=== PATIENT | female | born 1930 | race Caucasian/White ===

== ENCOUNTER 2017-02-27 11:35 | Inpatient (IN) | payer OTHER, MEDICARE ==
[~2017-02-27] VITALS: Ht 160 cm; Wt 86.2 kg
[~2017-02-27 11:35] MED LIST: COZAAR50 M1 PO; FERROUS SULFAT325 M1 PO; HYDRODIURIL 2525 MG PO; LEVOTHYROXIN0.025 MG PO; LIPITOR40 M1 PO; LOPRESSOR50 M1 PO; OMEPRAZOLE40 M1 PO; RIVA15T PO; SYNTHROID150 MCG PO
--- NOTE | 2017-02-27 11:44 | ED GENERAL ADULT ---
History of Present Illness General Chief Complaint: Upper Respiratory Sx/Fever Stated Complaint: FEVER,COUGH,CONGESTION Source: patient, family, old records Exam Limitations: no limitations Vital Signs & Intake/Output Vital Signs & Intake/Output Vital Signs Date Time Temp Pulse Resp B/P B/P Pulse O2 O2 Flow FiO2 Mean Ox Delivery Rate 02/27 1225 95 02/27 1214 Room Air Room Air 02/27 1200 97 Room Air Room Air 02/27 1139 97.0 78 20 120/81 Room Air Allergies Coded Allergies: NO KNOWN ALLERGIES (04/07/15) Reconcile Medications Atorvastatin Calcium (Lipitor) 40 MG TABLET 1 TAB PO DAILY CHOLESTEROL ( Reported) Ferrous Sulfate 325 MG TAB 1 TAB PO DAILY supplememt Levothyroxine Sodium 200 MCG TABLET 1 TAB PO DAILY hypothyroidism (Reported) Levothyroxine Sodium 25 MCG TABLET 1 TAB PO DAILY hypothyroidism (Reported) Losartan (Cozaar) 100 MG TABLET 1 TAB PO DAILY BP (Reported) Metoprolol Tartrate (Lopressor) 25 MG TABLET 1 TAB PO BID BP/A Fib (Reported) Omeprazole 40 MG CAPSULE.DR 1 CAP PO DAILY gerd (Reported) Triage Note: C/O WEAKNESS, DIZZINESS, COUGH R BACK PAIN X 4 DAYS. Triage Nurses Notes Reviewed? yes Onset: Gradual Duration: day(s): (5) Timing: remote history Injury Environment: home Severity: moderate Severity Numbers: 8 No Modifying Factors: none Associated Symptoms: cough HPI: Patient is an 86-year-old female with history of atrial fibrillation, hypothyroidism presenting to the emergency department with chief complaint of generalized malaise, weakness, tactile fevers and chills and intermittently productive cough with green sputum nothing going on for the past 5 days. According to family members there are multiple sick contacts in the home including several diagnosed with influenza currently on treatment. Patient reports that she did receive her influenza vaccine. Has been taking Tylenol for her aches and pains with little to no relief. Denies any nausea. No abdominal pain. Denies any chest pain or shortness of breath. Denies any lower extremity swelling. No recent travel. Denies history of blood clots. She is currently on Xarelto for atrial fibrillation. Her last bowel movement was this morning and normal. Denies any urinary frequency urgency or burning with urination. No hematuria. She does have history of anemia for which she takes iron supplementations. Denies any palpitations. No heat or cold intolerance. She is reporting some right upper back pain that think I have the past several days, pain is worse with movement, achy. Denies any rashes. (ORTIZ WISDOM) Past History Travel History Traveled to [place] past 21 day No Medical History Any Pertinent Medical History? 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 No (ORTIZ WISDOM) Review of Systems Review of Systems Constitutional: Reports: see HPI, chills, fever, malaise, weakness. Comments Review of systems: See HPI, All other systems negative. Constitutional, no weight loss HEENT: No visual changes no sore throat Cardiovascular: No chest pain ,palpitation , orthopnea or ankle swelling Skin, no jaundice no rashes Respiratory: No dyspnea or hemoptysis GI: No nausea no vomiting : No dysuria No hematuria Muscle skeletal: no neck pain, Neurologic: No numbness no confusion, no headaches Psych: No stress anxiety or depression,. Heme/endocrine: No bruising no bleeding no polyuria or polydipsia Immunology: No splenectomy or history of AIDS (ORTIZ WISDOM) Physical Exam Physical Exam General Appearance: well developed/nourished, no apparent distress, alert, awake , comfortable Comments: Well-developed well-nourished person in no acute distress HEENT:extraocular motion intact, no nystagmus. Pupils equally round and reactive to light and accommodation. Slight pallor noted to palpable conjunctiva bilaterally. Nose is atraumatic. External auditory canal and Tympanic membranes clear. Pharynx normal. No swelling or edema. Clearing secretions without difficulty. No pharyngeal erythema or exudates noted. Dry oral mucosa, dry lips. Neck: Supple, no lymphadenopathy, normal range of motion without pain or tenderness Back: Nontender, no CVA tenderness. Cardiovascular: Regular rate and rhythms no murmurs rubs or gallops, normal JVP Respiratory: Chest nontender. No respiratory distress.diffuse wheezing both inspiratory and expiratory to auscultation bilaterally in all lung cavazos. Abdomen: Soft, obese, nontender nondistended, no appreciable organomegaly. Normal bowel sounds. No ascites. No rebound or guarding. Extremity: No edema, no calf tenderness to palpation, normal and equal pulses. Muscular strength in the upper and lower extremities is 5 out of 5 in all extremities while laying on the stretcher. Telesales Team Leader strength is equal and symmetric bilaterally. Capillary refill is intact in upper and lower extremities. Neuro: Alert oriented x3, motor sensory normal, cranial nerves II through XII grossly intact. Skin: No appreciable rash on exposed skin, skin is warm and dry. Mild tenting noted on the upper extremities. Psych: Mood and affect is normal, memory and judgment is normal. Core Measures ACS in differential dx? Yes CVA/TIA Diagnosis: No Severe Sepsis Present: No Septic Shock Present: No (JESE REYNOSO,ORTIZ) Progress Differential Diagnoses I considered the following diagnoses in my evaluation of the patient: Viral syndrome, influenza, dehydration, acute on chronic anemia, electrolyte abnormality, pneumonia, bronchitis, pulmonary embolus, orthostatic hypotension Plan of Care: Orders Procedure Date/time Status Pathway - chart 02/27 1337 Active Patient Data 02/27 1337 Active Code Status 02/27 1337 Active Patient Data 02/27 1336 Active Admit to inpatient 02/27 1332 Active AEROSOL (GEN) 02/27 1227 Complete Add-on Test (ER Only) 02/27 1210 Active FREE T4 02/27 1210 Active MISTAKE 02/27 1157 Active RAPID VIRAL INFLUENZA A 02/27 1157 Complete URINALYSIS 02/27 1157 Active TSH REFLEX 02/27 1157 Active TROPONIN LEVEL 02/27 1157 Active PARTIAL THROMBOPLASTIN TIME 02/27 1157 Complete PROTHROMBIN TIME 02/27 1157 Complete LACTIC ACID 02/27 1157 Active COMPREHENSIVE METABOLIC PANEL 02/27 1157 Active CBC WITHOUT DIFFERENTIAL 02/27 1157 Complete Telemetry/Financial Operations Analyst 02/27 1142 Active EKG 02/27 1142 Active House Staff 02/27 UNK Active VTE Mechanical Prophylaxis 02/27 UNK Active Vital Signs 02/27 UNK Active Current Medications Sig/Sal Start time Last Medication Dose Stop Time Status Admin Sodium Chloride 1,000 ML BOLUS ONE 02/27 1200 AC 02/27 (Normal Saline 0.9%) 02/27 1359 1214 Laboratory Tests 02/27/17 1210: Anion Gap 13, Estimated GFR 22 L, BUN/Creatinine Ratio 21.4, Glucose 93, Lactic Acid 1.1, Calcium 9.4, Total Bilirubin 0.8, AST 39 H, ALT 46, Alkaline Phosphatase 112, Troponin I < 0.01, Total Protein 6.6, Albumin 3.8, Globulin 2.8 , Albumin/Globulin Ratio 1.4, Free T4 Pending, TSH &T3 &Free T4 Intrp 9.630 H, PT 23.9 H, INR 2.29 H, APTT 39 H, CBC w Diff NO MAN DIFF REQ, RBC 5.33, MCV 90.2, MCH 29.2, RDW 16.0 H, MPV 9.8, Gran % 79.0 H, Lymphocytes % 12.3 L, Monocytes % 7.5, Eosinophils % 0.7, Basophils % 0.5, Absolute Granulocytes 6.2, Absolute Lymphocytes 1.0 L, Absolute Monocytes 0.6, Absolute Eosinophils 0.1, Absolute Basophils 0, PUBS MCHC 32.4 L Microbiology 02/27 1202 NASOPHARYN: Influenza Virus A & B Rapid Smear - COMP Diagnostic Imaging: Viewed by Me: Radiology Read. Discussed w/RAD: Radiology Read. Radiology Impression: ATIENT: TERRENCE VIZCARRA PRESENT AGE: 86 PATIENT ACCOUNT NO: [id number] : 30 LOCATION: [facility] ORDERING PHYSICIAN: ORTIZ REYNOSO SERVICE DATE: 02/27/17115 EXAM TYPE: RAD - XRY-PORTABLE CHEST XRAY EXAMINATION: XR PORTABLE CHEST CLINICAL INFORMATION: Cough. Malaise. COMPARISON: 04/07/2015 TECHNIQUE: Portable AP view of the chest was obtained. FINDINGS: Cardiac leads overlie the chest. The lungs are well expanded. There is no focal consolidation, edema, or effusion. No pneumothorax. The cardiomediastinal silhouette is within normal limits. No acute osseous abnormality. Partial visualization of right shoulder arthroplasty. IMPRESSION: No acute pulmonary findings. DICTATED BY: JAQUELINE BOLTON,CANDI DATE/TIME DICTATED:02/27/17 1232 BRAND PROTECTION MANAGER:TOMASZ DATE/TIME TRANSCRIBED: / 1232 CONFIDENTIAL, DO NOT COPY WITHOUT APPROPRIATE AUTHORIZATION. < Electronically signed in Other Vendor System> SIGNED BY: JAQUELINE BOLTON, CANDI 02/27/17 0550 Initial ED EKG: ATRIAL FIBRILLATION, 76 BPM Prior EKG: unchanged Comments: 02/27/2017 12:06:14 PM on arrival patient is well-appearing afebrile, blood pressure within normal range and oxygen saturation is 97% on room air. Patient does have diffuse wheezing on exam, no lower extremity edema. She is on blood thinners for her atrial fibrillation. Her EKG shows A. fib which is unchanged from previous. This is unlikely a pulmonary embolus as patient has no signs of DVT, has wheezing on chest auscultation and is on anticoagulation already. There is no tachypnea and she is not hypoxic. No hemoptysis. Other than age no real risk factors for pulmonary embolus. We will assess for anemia with CBC, dehydration with CMP, chest x-ray to rule out pneumonia. Patient will be hydrated with IV fluids, DuoNeb ordered to help with wheezing. Flu swab will be obtained as patient has had several exposures to influenza. We'll assess orthostatics to rule out orthostatic hypotension. Patient will be hydrated with IV fluids secondary to decreased by mouth intake over the past several days. 02/27/2017 1:22:18 PM patient's vitals are stable, orthostatics are negative. Thyroid function still pending at this time. Troponin is negative. EKG is unchanged. She does have acute kidney injury compared to previous labs. Patient will be admitted for acute kidney injury, dehydration and bronchitis. Pending urinalysis. (JESE REYNOSO,ORTIZ) Departure Departure Time of Disposition: 1312 Disposition: STILL A PATIENT Condition: Stable Clinical Impression Primary Impression: Acute kidney injury Secondary Impressions: Bronchitis, Dehydration Referrals: ROBERT BOLTON,RAMON Lindsey (PCP/Family) Departure Forms: Customer Survey General Discharge Information Admission Note Spoke With: AMARI BOLTON,DEDRICK Arciniega Documentation of Exam: Documentation of any treatments & extenuating circumstances including Concerns Regarding Discharge (functional status, medication knowledge or non-compliance, living conditions, etc.) that warrant an admission rather than observation: Patient according IV hydration, repeat creatinine and BUN, serial DuoNeb treatments, may consider by mouth antibiotics to help with inflammation for bronchitis. Discharge at this time would be medically full. May require physical therapy evaluation prior to discharge. (ORTIZ WIDSOM) PA/MEDIA INTERN Co-Sign Statement Statement: ED Attending supervision documentation- [X] I saw and evaluated the patient. I have also reviewed all the pertinent lab results and diagnostic results. I agree with the findings and the plan of care as documented in the PA's/MEDIA INTERN's documentation. [X] I have reviewed the ED Record and agree with the PA's/MEDIA INTERN's documentation. [] Additions or exceptions (if any) to the PAs/MEDIA INTERN's note and plan are summarized below: [] (ASHIA BOLTON,KWABENA Bingham) Critical Care Note Critical Care Note Critical Care Time: non-applicable (ORTIZ WISDOM)
[2017-02-27 12:22] LABS: ABSOLUTE BASOPHIL COUNT 0 /CUMM (0.0-0.2); ABSOLUTE EOSINOPHIL COUNT 0.1 /CUMM (0.0-0.7); ABSOLUTE GRANULOCYTE CT 6.2 /CUMM (1.4-6.5); ABSOLUTE MONOCYTE COUNT 0.6 /CUMM (0.10-0.60); BASOPHIL % 0.5 % (0.0-2.0); EOSINOPHIL % 0.7 % (0-5); HEMATOCRIT 48.1 % (37-47); MEAN CORPUSCULAR HGB 29.2 PG (27.0-31.0); MEAN CORPUSCULAR HGB CONC 32.4 G/DL (33.0-37.0); MEAN CORPUSCULAR VOLUME 90.2 FL (81.0-99.0); MEAN PLATELET VOLUME 9.8 FL (7.4-10.4); PLATELET COUNT 208 /CUMM (130-400); RED BLOOD CELL CT 5.33 /CUMM (4.20-5.40); WHITE BLOOD CELL COUNT 7.9 /CUMM (4.8-10.8)
--- NOTE | 2017-02-27 12:39 | RADIOLOGY REPORT ---
EXAMINATION: XR PORTABLE CHEST CLINICAL INFORMATION: Cough. Malaise. COMPARISON: 04/07/2015 TECHNIQUE: Portable AP view of the chest was obtained. FINDINGS: Cardiac leads overlie the chest. The lungs are well expanded. There is no focal consolidation, edema, or effusion. No pneumothorax. The cardiomediastinal silhouette is within normal limits. No acute osseous abnormality. Partial visualization of right shoulder arthroplasty. IMPRESSION: No acute pulmonary findings.
[2017-02-27 13:04] LABS: PT 23.9 SEC (9.4-12.5); PTT 39 SEC (25-37)
--- NOTE | 2017-02-27 13:35 | History & Physical ---
REECE MARTÍNEZ MD 02/27/17 1334: General Information and HPI MD Statement: I have seen and personally examined TERRENCE VIZCARRA and documented this H&P. The patient is a 86 year old F who presented with a patient stated chief complaint of [shortness of breath]. Source of Information: patient History of Present Illness: This is an 86-year-old female with the past medical history of hypothyroidism, atrial fibrillation, rate controlled with metoprolol and on xarelto, chronic kidney disease stage stage III with a baseline creatinine 1.4-1.5, who presented to the [facility] with persistent shortness of breath, Body aches , fever and chills that has been ongoing for the last 5 days. The patient is initial symptoms started 5 days back with dry cough and body aches. At that time she was being visited by her grandchildren 2 of them were recently diagnosed with with flu. The patient is initial symptoms comprised of dry cough which has been productive in the last 24 hours. Sputum is greenish in color and she has been experiencing fever and chills as well. When I saw the patient she was shivering with cold and was requesting an another layer of packed blanket. She denies any recent travels or any weight loss. She has unsuccessfully tried [id number] Tylenol . Allergies/Medications Allergies: Coded Allergies: NO KNOWN ALLERGIES (04/07/15) Home Med list Atorvastatin Calcium (Lipitor) 40 MG TABLET 1 TAB PO DAILY CHOLESTEROL ( Reported) Ferrous Sulfate (Feosol) 325 MG (65 MG IRON) TABLET 65 MG PO DAILY IRON SUPPLEMENT Levothyroxine Sodium (Synthroid) 150 MCG TABLET 1 TAB PO DAILY thyroid ( Reported) Losartan Potassium (Cozaar) 50 MG TABLET 1 TAB PO DAILY htn (Reported) Metoprolol Tartrate (Lopressor) 50 MG TABLET 12.5 MG PO BID AFIB (Reported) Omeprazole 40 MG CAPSULE.DR 1 CAP PO DAILY GERD (Reported) Past History Travel History Traveled to [place] past 21 day No Medical History Neurological: NONE EENT: cataracts Cardiovascular: AFIB Respiratory: NONE Gastrointestinal: NONE Hepatic: GALL BLADDER REMOVED Renal: NONE Musculoskeletal: LUMBAR LAMANECTOMY Endocrine: hypothyroidism Blood Disorders: NONE Cancer(s): breast 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 Exam & Diagnostic Data Last 24 Hrs of Vital Signs/I&O Vital Signs Date Time Temp Pulse Resp B/P B/P Pulse O2 O2 Flow FiO2 Mean Ox Delivery Rate 02/27 1225 95 02/27 1214 Room Air Room Air 02/27 1200 97 Room Air Room Air 02/27 1139 97.0 78 20 120/81 Room Air Intake & Output 02/27 1600 02/27 0800 02/27 0000 Intake Total 1000 Output Total Balance 1000 Intake, IV 1000 Patient 190 lb Weight Weight Reported by Patient Measurement Method Physical Exam General Appearance Alert, Oriented X3, No Acute Distress Skin No Rashes, No Breakdown HEENT Atraumatic, PERRLA Neck No JVD Lymphatic Axillary nl, Cervical nl Cardiovascular Normal S1, Normal S2 Lungs bilateral decreased air entry no Presence of wheezing or crackles Abdomen Soft, No Tenderness Assessment/Plan Assessment: This is 86 Y/Of with PMH of atrial fibrillation ,HTN,CKD stage 3 hypothyroidism ,who presented with the urt symtoms whihc included productive cough with shakes and chills . Vitals at the time of admission showed : Blood pressure of 144/68 , heart rate 68, respiration rate of 18, saturation off 96% on room air,, Labs: Labs shows normal WBC normal hemoglobin, hematocrit count Normal lactic acid Creatinine of 2.1(baseline 1.5-1.6) EKG showed atrial fibrillation with normal ventricular response Assessment 1. Acute bronchitis, seems vital in origin with superimposed bacterial infection with no evidence of pneumonia on the x-ray 2. History of hypothyroidism currently in subclinical hypothyroidism 3. History of atrial fibrillation rate controlled with metoprolol and alsoXarelto 4. Acute on Chronic kidney disease stage III secondary to hypertension-Likely dehydration 5. History of hypertension 6.Elvated Coagulopathy while being on Xarelto Plan Admit to general medicine floor TRc evaluation with albuterol inhalation and nebulization as needed IV azithromycin IV Normal saline and Hydration Sputum CX Negative flu test IV hydration for acute kidney injury Continue with all home medications REcheck CBC and INR in Am DVT prophylaxis with xarelto resuming from tomorrow FC As Ranked By This Provider Problem List: 1. Dehydration 2. Bronchitis 3. Acute kidney injury 4. DVT prophylaxis 5. Atrial fibrillation 6. Symptomatic anemia Core Measures/Miscellaneous Acute Coronary Syndrome ACS Diagnosis: No Cerebrovascular Accident CVA/TIA Diagnosis: No Congestive Heart Failure CHF Diagnosis: No Venous Thromboembolism VTE Risk Factors: Acute medical illness, Age > 40 No [facility] VTE prophylaxis d/t: VTE low risk, No contraindications No VTE Pharm Prophylaxis d/t: VTE low risk, No contraindications VTE Diagnosis: No VTE Type: NONE VTE Confirmed by (Test): NONE Severe Sepsis Severe Sepsis Present: No Septic Shock Septic Shock Present: No Miscellaneous Documentation Attending Case Discussed With: CECELIA SZYMANSKI MD Primary Care Physician: RAMON JONES MD Patient sees these Specialists Jaun Rg MD Level of Patient Care: General Medicine CECELIA SZYMANSKI 02/27/17 1448: Attending Review Statement Attending Statement Attending MD Statement: examined this patient, discuss w/resident/PA/PRIVATE WATCHMAN, agreed w/resident/PA/PRIVATE WATCHMAN, discussed with family, reviewed EMR data (avail), discussed with nursing, discussed with case mgmt, reviewed images, amended to note Attending Assessment/Plan: "This is an 86-year-old female with the past medical history of hypothyroidism, atrial fibrillation, rate controlled with metoprolol and on xarelto, chronic kidney disease stage stage III with a baseline creatinine 1.4-1.5, who presented to the [facility] with persistent shortness of breath, Body aches , fever and chills that has been ongoing for the last 5 days. The patient is initial symptoms started 5 days back with dry cough and body aches. At that time she was being visited by her grandchildren 2 of them were recently diagnosed with with flu. The patient is initial symptoms comprised of dry cough which has been productive in the last 24 hours. Sputum is greenish in color and she has been experiencing fever and chills as well. When I saw the patient she was shivering with cold and was requesting an another layer of packed blanket. She denies any recent travels or any weight loss. She has unsuccessfully tried [id number] Tylenol ". ASSESSMENT 1. Dyspnea on exertion 2. Acute bronchitis 3. Acute kidney injury on chronic kidney disease 2/2 IVVD 4. afib on xarelto 5. h/o GAVE 6. Anemia of chronic disease 7. hypothyroidism 8. Coagulopathy INR 2.2 PLAN admit to medical services abx, IVF , monitor creatinine TRC /nebul c/w home meds gi/dvt prophylaixs full code I anticipate > 2midnight stay 2/2 acute clinical problems.
[2017-02-27] MEDS ORDERED: FEOSOL325 MG PO (14:12)
[2017-02-27] MEDS ORDERED: XARELTO15 M1 PO (15:40)
[2017-02-27 18:00] VITALS: BP 152/80
[2017-02-27 21:57] VITALS: BP 110/50
[2017-02-28 06:53] VITALS: BP 116/58
[2017-02-28 08:15] LABS: ABSOLUTE BASOPHIL COUNT 0 /CUMM (0.0-0.2); ABSOLUTE EOSINOPHIL COUNT 0.1 /CUMM (0.0-0.7); ABSOLUTE GRANULOCYTE CT 3.1 /CUMM (1.4-6.5); ABSOLUTE LYMPH COUNT 0.8 /CUMM (1.2-3.4); ABSOLUTE MONOCYTE COUNT 0.4 /CUMM (0.10-0.60); BASOPHIL % 0.5 % (0.0-2.0); EOSINOPHIL % 2.1 % (0-5); GRANULOCYTE % 71.3 % (42.2-75.2); MEAN CORPUSCULAR HGB 29.4 PG (27.0-31.0); MEAN CORPUSCULAR HGB CONC 32.7 G/DL (33.0-37.0); MEAN CORPUSCULAR VOLUME 89.7 FL (81.0-99.0); MEAN PLATELET VOLUME 9.8 FL (7.4-10.4); PLATELET COUNT 165 /CUMM (130-400); RBC DISTRIBUTION WIDTH 15.8 % (11.5-14.5); RED BLOOD CELL CT 4.74 /CUMM (4.20-5.40); WHITE BLOOD CELL COUNT 4.4 /CUMM (4.8-10.8)
[2017-02-28 08:39] LABS: HEMATOCRIT 42.5 % (37-47)
[2017-02-28] MEDS ORDERED: ZITHROMAX250 M2 PO ×2 (08:58→09:49)
[2017-02-28 09:21] VITALS: BP 116/58
--- NOTE | 2017-02-28 09:30 | Patient Discharge Instructions ---
Discharge Instructions General Discharge Information You were seen/treated for: COUGH AND PRODUCTIVE SPUTUM Special Instructions: PLEASE F/U WITH PCP IN 1 WEEK PLEASE COMPLETE 4 MORE DAYS OF ABX THERAPY Acute Coronary Syndrome Inclusion Criteria At DC or during hospital stay patient has or had the following: ACS DIAGNOSIS No Discharge Core Measures Meds if any: Prescribed or Continued at Discharge Meds if any: NOT Prescribed or Continued at Discharge Congestive Heart Failure Inclusion Criteria At DC or during hospital stay patient has or had the following: CHF DIAGNOSIS No Discharge Core Measures Meds if any: Prescribed or Continued at Discharge Meds if any: NOT Prescribed or Continued at Discharge Cerebrovascular accident Inclusion Criteria At DC or during hospital stay patient has or had the following: CVA/TIA Diagnosis No Discharge Core Measures Meds if any: Prescribed or Continued at Discharge Meds if any: NOT Prescribed or Continued at Discharge Venous thromboembolism Inclusion Criteria VTE Diagnosis No VTE Type NONE VTE Confirmed by (Test) NONE Discharge Core Measures - Per Current guidelines, there needs to be overlap - treatment for the first 5 days of Warfarin therapy. - If discharged on Warfarin prior to 5 days of - overlap therapy, the patient will need to be - assessed for post discharge needs including - *Post discharge parental anticoagulation - *Warfarin and/or parental anticoagulation education - *Follow up date to check INR post discharge At least 5 days overlap therapy as Inpatient No Meds if any: Prescribed or Continued at Discharge Note: Overlap Therapy is Warfarin and Anticoagulant Meds if any: NOT Prescribed or Continued at Discharge
--- NOTE | 2017-02-28 12:52 | PN- Housestaff ---
[facility] 02/28/17 1252: Subjective Follow-up For: 1.Acute bronchitis 2.Hypothyroidism 3.A.fib 4.Acute on Chronic kidney disease stage III 5.HTN Tele-Events Since Last Visit: Afebrile, WBCs within normal limits, hemodynamically stable, no acute overnight events reported. Is laying on bed looks relaxed and comfortable. Patient denies any current active complaints. Patient is stable and will most likely be discharged later today. Review of Systems Constitutional: Reports: no symptoms. Objective Last 24 Hrs of Vital Signs/I&O Vital Signs Date Time Temp Pulse Resp B/P B/P Pulse O2 O2 Flow FiO2 Mean Ox Delivery Rate 02/28 0921 80 116/58 02/28 0800 Room Air 02/28 0653 98.1 80 18 116/58 95 Room Air 02/28 0000 Room Air 02/27 2157 98.6 83 18 110/50 94 02/27 2100 83 110/50 02/27 1800 97.4 85 152/80 96 Room Air 02/27 1800 96 Room Air 02/27 1639 96.1 69 18 125/69 97 Intake & Output 02/28 1600 02/28 0800 02/28 0000 Intake Total 800 705 Output Total Balance 800 705 Intake, IV 600 225 Intake, Oral 200 480 Patient 86.183 kg Weight Weight Reported by Patient Measurement Method Physical Exam General Appearance: Alert, Oriented X3, Cooperative, No Acute Distress Skin: No Rashes HEENT: Atraumatic, PERRLA, EOMI, Mucous Membr. moist/pink Cardiovascular: Regular Rate, Normal S1, Normal S2, No Murmurs Lungs: Clear to Auscultation, Normal Air Movement Abdomen: Normal Bowel Sounds, Soft, No Tenderness Extremities: No Clubbing, No Cyanosis, No Edema Current Medications: Current Medications Sig/Sal Start time Last Medication Dose Route Stop Time Status Admin Acetaminophen/ 1 TAB Q6P PRN 02/27 1500 DCD Hydrocodone Bitart PO Atorvastatin Calcium 40 MG DAILY 02/28 1000 DCD 02/28 PO 0922 Azithromycin 500 MG 1430 02/28 1430 CAN Sodium Chloride 250 ML IV Azithromycin 250 MG DAILY 02/28 1000 DCD 02/28 PO 03/03 1001 1129 Azithromycin 500 MG DAILY 02/27 1408 DC 02/27 Sodium Chloride 250 ML IV 1429 Ferrous Sulfate 325 MG DAILY 02/28 1000 DCD 02/28 PO 0922 Levothyroxine Sodium 0.15 MG DAILY 02/28 1000 DCD 02/28 PO 0921 Losartan Potassium 50 MG DAILY 02/28 1000 CAN PO Metoprolol Tartrate 12.5 MG BID 02/27 2200 DCD 02/28 PO 0921 Omeprazole 40 MG DAILY AC 02/28 0700 DCD 02/28 PO 0602 Rivaroxaban 15 MG DAILY 02/28 1000 DCD 02/28 PO 0922 Sodium Chloride 1,000 ML Q13H 02/270 DCD 02/27 IV 2133 Last 24 Hrs of Lab/Damon Results Last 24 Hrs of Labs/Mics: Laboratory Tests 02/28/17 0650: Anion Gap 10, Estimated GFR 31 L, BUN/Creatinine Ratio 20.6, PT 14.0 H, INR 1.34 H, CBC w Diff NO MAN DIFF REQ, RBC 4.74, MCV 89.7, MCH 29.4, RDW 15.8 H, MPV 9.8, Gran % 71.3, Lymphocytes % 17.4 L, Monocytes % 8.7, Eosinophils % 2.1, Basophils % 0.5, Absolute Granulocytes 3.1, Absolute Lymphocytes 0.8 L, Absolute Monocytes 0.4, Absolute Eosinophils 0.1, Absolute Basophils 0, PUBS MCHC 32.7 L 02/27/17 1457: Lactic Acid Cancelled Microbiology 02/27 1900 LOWER RESP: Respiratory Culture - RES 02/27 1900 LOWER RESP: Gram Stain - RES Assessment/Plan Assessment: 1.Acute bronchitis * Continue azithromycin * Continue nebulizer when necessary 2.Hypothyroidism * Continue levothyroxin 3.A.fib * Continue metoprolol * Continue Xarelto 4.Acute on Chronic kidney disease stage III * Kidney function back to baseline 5.HTN/HLD * Continue metoprolol * Continue statin Full code Regular diet DVT prophylaxis with Xarelto Problem List: 1. Bronchitis 2. Acute kidney injury 3. Atrial fibrillation Pain Ratin Pain Location: na Pain Goal: Remain pain free Pain Plan: See A&P Tomorrow's Labs & Rationales: None as patient most likely discharged today CECELIA SZYMANSKI 02/28/17 1308: Attending MD Review Statement Attending Statement Attending MD Statement: examined this patient, discuss w/resident/PA/[employer], agreed w/resident/PA/[employer], discussed with family, reviewed EMR data (avail), discussed with nursing, discussed with case mgmt, reviewed images, amended to note Attending Assessment/Plan: ASSESSMENT 1. Dyspnea on exertion 2. Acute bronchitis 3. Acute kidney injury on chronic kidney disease 2/2 IVVD resolving 4. afib on xarelto 5. h/o GAVE 6. Anemia of chronic disease 7. hypothyroidism 8. Coagulopathy INR improved. PLAN admit to medical services abx, received IVF, creatinine improved TRC /nebul c/w home meds gi/dvt prophylaixs full code encourage PO intake.
--- NOTE | 2017-02-28 14:22 | Discharge Summary ---
See Addendum Visit Information Visit Dates Admission Date: 02/27/17 Discharge Date: 03/02/17 Hospital Course Course Attending Physician: CECELIA SZYMANSKI MD Primary Care Physician: RAMON JONES MD Hospital Course: 86-year-old female with the past medical history of hypothyroidism, atrial fibrillation, rate controlled with metoprolol and on xarelto, chronic kidney disease stage stage III with a baseline creatinine 1.4-1.5, who presented to the [facility] with persistent shortness of breath, Body aches , fever and chills. Her symptoms started 5 days prior to admission. 1. Exertional dyspnea most likely secondary to Acute bronchitis: She was admitted to general medicine floor. She was started on IV Azithromycin, IV fluid, and nebulizer as necessary. After patient became stable she was discharged on azithromycin to finish a total of 5 days, she was also instructed to follow up with her PCP post discharge. 2.Acute on Chronic kidney disease stage III: On admission patient's creatinine was 2.1, she was started on IV fluids after which creatinine went back to baseline. 3.Hypothyroidism * We continued her home dose of levothyroxin 3.A.fib * We continued her home dose of metoprolol * We continued her home dose of Xarelto 5.HTN/HLD * We continued her home dose of Metoprolol * We continued her home dose of Statin Allergies: Coded Allergies: NO KNOWN ALLERGIES (04/07/15) Disposition Summary Disposition Principal Diagnosis: Acute bronchitis Acute kidney injury on top of chronic kidney disease Additional Diagnosis: A. fib Hypertension Hyperlipidemia Discharge Disposition: home or self care Discharge Instructions General Discharge Information Code Status: Full Code Patient's Diet: Heart healthy diet Patient's Activity: As tolerated Follow-Up Instructions/Appts: Please follow up with PCP within one week Medications at Discharge Discharge Medications: Continue taking these medications: Losartan Potassium (Cozaar) 50 MG TABLET 1 Tablet ORAL DAILY Comments: NOT GIVEN IN HOSPITAL Omeprazole (Omeprazole) 40 MG CAPSULE. 1 Capsule ORAL DAILY Comments: Last Taken: 02/28/17 Time: 6 AM Levothyroxine Sodium (Synthroid) 150 MCG TABLET 1 Tablet ORAL DAILY Comments: Last Taken: 02/28/17 Time: 9:20 AM Atorvastatin Calcium (Lipitor) 40 MG TABLET 1 Tablet ORAL DAILY Comments: Last Taken: 02/28/17 Time: 9:20 AM Metoprolol Tartrate (Lopressor) 50 MG TABLET 12.5 Milligram ORAL TWICE DAILY Comments: Last Taken: 02/28/17 Time: 9:20 AM Rivaroxaban (Xarelto) 15 MG TABLET 1 Tablet ORAL DAILY Qty = 30 Comments: Last Taken: 02/28/17 Time: 9:20 AM Start taking the following new medications: Azithromycin (Zithromax) 250 MG TABLET 1 Tablet ORAL DAILY Qty = 4 No Refills Comments: Last Taken: 02/28/17 Time: 11:30 AM The following medications have been changed: Old: Ferrous Sulfate (Ferrous Sulfate) 325 MG TAB 1 Tablet ORAL DAILY Qty = 30 New: Ferrous Sulfate (Feosol) 325 MG (65 MG IRON) TABLET 65 Milligram ORAL DAILY Qty = 30 Comments: Last Taken: 02/28/17 Time: 9:20 AM Copies To: ROBERT [facility]OL[facility],RAMON Lindsey
== END 2017-02-28 13:45 | DRG 202 ==
LOC: ERH 11:35 → ERHI 13:32 → ENRESERV 16:53 → 2NB 17:48 → ENPENDDIS 02-28 10:45 → 2NB 02-28 13:45
PROVIDERS: Internal Medicine Nephrology; Physician Assistant; ADMIT Internal Medicine
DX: J20.9 Acute bronchitis, unspecified (principal); N17.9 Acute kidney failure, unspecified; I48.2 Chronic atrial fibrillation; E86.0 Dehydration; N18.3 Chronic kidney disease, stage 3 (moderate); D63.1 Anemia in chronic kidney disease; E03.9 Hypothyroidism, unspecified; I12.9 Hypertensive chronic kidney disease with stage 1 through stage 4 chronic kidney disease, or unspecified chronic kidney disease; K31.819 Angiodysplasia of stomach and duodenum without bleeding; Z79.01 Long term (current) use of anticoagulants; Z85.3 Personal history of malignant neoplasm of breast
CPT/HCPCS: 2NBP; 81001; 82436; 87070; 87071; 87804; 87804-59; 93005; 93010; 96374; J0456; J7040